=== PATIENT | female | born 1935 | race Caucasian/White ===

== ENCOUNTER 2016-12-23 17:13 | Inpatient (IN) | payer OTHER, BC ==
[~2016-12-23] VITALS: Ht 9 cm; Wt 85.5 kg
[2016-12-23] VITALS (19 sets, daily range): BP systolic 79–113; BP diastolic 48–88
--- NOTE | ~2016-12-23 | 2DMMODE ---
[facility] [address] [employer] [place] [address] 2 D/M-MODE ECHOCARDIOGRAM Name: TANNERROBBI J Room #: 243-P [facility] .R.#: [id number] Admission: 12/23/16 Attend Phys: Cristofer Nava Discharge: Date of : 39 Date of Service: 12/24/16 1049 Report #: [id number] THIS REPORT FOR: //name// APPROVED REPORT Study performed: 12/24/2016 08:15:51 EXAM: Comprehensive 2D, Doppler, and color-flow Echocardiogram Patient Location: Bedside Room #: 243 Status: routine Other Information Study Quality: Fair Indications Atrial Fibrillation Dyspnea acute respiratory failure 2D Dimensions RVDd: 33.81 mm LVEF(%): 66.26 (>50%) IVSd: 13.11 (7-11mm) LVOT Diam: 19.47 (18-24mm) LVDd: 44.28 mm PWd: 13.27 (7-11mm) Ascending Ao: 28.19 (22-36mm) LVDs: 28.18 (25-40mm) Aortic Root: 29.97 mm Christine's LVEF: 66.26 % Volumes Left Atrial Volume (Systole) Single Plane 4CH: 76.00 mL Single Plane 2CH: 79.35 mL LA ESV Index: 41.00 mL/m2 Aortic Valve AoV Peak Waldo.: 1.22 m/s AO Peak Gr.: 6.59 mmHg LVOT Max P.08 mmHg LVOT Max V: 0.72 m/s BINH Vmax: 1.74 cm2 Mitral Valve MV E Max Waldo.: 0.95 m/s IVRT: 96.89 ms Pulmonary Valve [facility] [address] [place] [address] 2 D/M-MODE ECHOCARDIOGRAM Name: ROBBI HART Walter Room #: 243-[facility]#: [id number] Admission: 12/23/16 Attend Phys: Cristofer Nava Discharge: Date of : 39 Date of Service: 12/24/16 1049 Report #: [id number] Peak Waldo.: 0.76 m/s PV Peak Gr.: 2.36 mmHg Tricuspid Valve TR Peak Waldo.: 2.75 m/s RAP Estimate: 10.00 mmHg TR Peak Gr.: 30.26 mmHg PA Pressure: 40.00 mmHg Left Ventricle The left ventricle is normal size. There is normal LV segmental wall motion. Mild concentric left ventricular hypertrophy. Left ventricular systolic function is borderline. LVEF is 50%. This study is not technically sufficient to allow evaluation of the LV diastolic function due to atrial fibrillation. Right Ventricle The right ventricle is normal size. The right ventricular systolic function is normal. Atria Left atrium is dilated. The right atrium size is normal. Aortic Valve Aortic valve leaflets are mildly thickened. Trace to mild aortic regurgitation. There is no aortic valvular stenosis. Mitral Valve The mitral valve is normal in structure. Trace mitral regurgitation. No evidence of mitral valve stenosis. Tricuspid Valve The tricuspid valve is normal in structure. There is mild tricuspid regurgitation. The right atrial pressure is estimated at 10 mmHg. There is mild pulmonary hypertension with an estimated PAP of 40 mmHg. Pulmonic Valve The pulmonary valve is normal in structure. Trace pulmonic regurgitation. Great Vessels The aortic root is normal in size. The ascending aorta is normal in size. IVC is dilated and collapses <50% with inspiration. Pericardium There is no pericardial effusion. [facility] [address] [place] [address] 2 D/M-MODE ECHOCARDIOGRAM Name: INDIA HARTCHANCE Watson Room #: 243-P [facility] IN ..#: [id number] Admission: 12/23/16 Attend Phys: Cristofer Nava Discharge: Date of : 39 Date of Service: 12/24/16 1049 Report #: [id number] <Conclusion> The left ventricle is normal size. LVEF is 50%. Left atrium is dilated. Aortic valve leaflets are mildly thickened. Trace to mild aortic regurgitation. There is no aortic valvular stenosis. The mitral valve is normal in structure. Trace mitral regurgitation. The tricuspid valve is normal in structure. There is mild tricuspid regurgitation. The right atrial pressure is estimated at 10 mmHg. There is mild pulmonary hypertension with an estimated PAP of 40 mmHg. The pulmonary valve is normal in structure. Trace pulmonic regurgitation. <ELECTRONICALLY SIGNED> By: Carlos Hoffman MD 12/24/16 1049 1049 1049 Carlos Hoffman MD /INF
--- NOTE | ~2016-12-23 | EKG ---
[address] [address] ELECTROCARDIOGRAM REPORT Name: INDIA HARTCHANCE Watson Room #: 243-P ADM IN M.R.#: [id number] Admission: 12/23/16 Attend Phys: Silvio Dela Cruz MD Discharge: Date of : 39 Report #: [id number] THIS REPORT FOR: //name// [facility] ED Test Date: 2016-12-23 Test Time: 17:30:16 Pat Name: ROBBI HART Department: Room: 243 Gender: F Fingerprint Classifier: [id number] : 1935 Requested By: Mikayla Fan Order Number: [id number] MD: Moses Medrano Measurements Intervals Raymond Rate: 96 P: 0 ID: 100 QRS: -25 QRSD: 87 T: 95 QT: 330 QTc: 417 Interpretive Statements Atrial fibrillation Borderline left axis deviation Borderline T wave abnormalities No previous ECG available for comparison Electronically Signed On 12-23-2016 23:05:12 CDT by Moses Medrano [email or web address] <ELECTRONICALLY SIGNED> By: Moses Medrano MD 12/23/16 2305 1730 1730 Moses Medrano MD /ROLAND
[2016-12-23 17:50] LABS: ABG SAMPLE TYPE ARTERIAL; BE(vivo) -5.4 mmol/L (-2 to +3); HCO3 17.9 mmol/L (22.0-26.0); LACTATE 2.66 mmol/L (0.5-2.0); O2Hb 89.4 % (92.0-98.0); PCO2 28.5 mmHg (35.0-45.0); PO2 60.1 mmHg (80.0-100.0); pH 7.416 (7.360-7.450); sO2 91.9 % (92.0-98.0); tCO2 18.8 mmol/L (24.0-30.0)
[2016-12-23 17:51] LABS: STICK SITE R.RADIAL
[2016-12-23 18:04] LABS: HEMATOCRIT 24.2 % (37.0-47.0); MCH 30.7 pg (26.0-34.0); MCV 93.1 fL (80.0-100.0); PLATELET COUNT 231 thou/uL (150-400); RDW 18.5 % (10.5-14.5); URINE BILIRUBIN NEGATIVE (Negative); URINE BLOOD 2+ (Negative); URINE COLOR YELLOW; URINE GLUCOSE-RANDOM* NEGATIVE (Negative); URINE KETONES NEGATIVE (Negative); URINE NITRITE NEGATIVE (Negative); URINE PROTEIN (DIPSTICK) 1+ (Negative); URINE UROBILINOGEN 0.2 E.U./dl (0.2-1.0); WBC 39.2 thou/uL (4.0-11.0)
[2016-12-23 18:07] LABS: MANUAL DIFF YES
[2016-12-23 18:14] LABS: ANION GAP 12 mmol/L (7-16); BUN 38 mg/dL (7-18); CALCIUM 7.3 mg/dL (8.5-10.1); CHLORIDE 103 mmol/L (98-107); CO2 19 mmol/L (21-32); CREATININE 1.8 mg/dL (0.6-1.0); GLUCOSE 98 mg/dL (74-106); POTASSIUM 3.9 mmol/L (3.5-5.1); SODIUM 134 mmol/L (136-145)
[2016-12-23 18:24] LABS: BACTERIA 1-9 Few /HPF (None Seen); CASTS None Seen /LPF (None Seen); CRYSTALS None Seen /LPF (None Seen); SQUAMOUS None Seen /LPF (0-3); URINE RBC 3-10 Few /HPF (0-2); YEAST Present (None Seen)
[2016-12-23 18:25] LABS: ALBUMIN 1.5 g/dL (3.4-5.0); NT-PRO BRAIN NAT PEPTIDE 4201 pg/mL (<300); SGOT 69 U/L (15-37); SGPT 45 U/L (30-65); TROPONIN-I < 0.04 ng/mL (<0.04-0.07)
[2016-12-23 18:38] LABS: ALKALINE PHOSPHATASE 390 U/L (46-116); TOTAL BILIRUBIN 0.5 mg/dL (<0.1-1.0); TOTAL PROTEIN 6.2 g/dL (6.4-8.2)
[2016-12-23 18:51] LABS: ABSOLUTE NEUTROPHILS 36.1 thou/uL (1.4-8.2); METAMYELOCYTES 3 %; PLATELET ESTIMATE NORMAL; TOTAL CELL COUNT 100
[2016-12-23 20:08] LABS: ABG SAMPLE TYPE VENOUS; BE(vivo) -7.6 mmol/L (-2 to +3); HCO3 17.4 mmol/L (22.0-26.0); LACTATE 2.03 mmol/L (0.5-2.0); O2(CT) 5.8 mL/dL (15.0-23.0); O2Hb VENOUS 48.8 (65.0-85.0); PCO2 VENOUS 33.1 mmHg (41.0-51.0); PO2 VENOUS 29.4 mmHg (35.0-45.0); sO2 VENOUS 52.8 % (65.0-85.0); tCO2 18.4 mmol/L (24.0-30.0)
[2016-12-23 20:09] LABS: STICK SITE PICC
[2016-12-23 21:02] LABS: APTT 47.7 Seconds (24.5-32.8); FIBRINOGEN 424.5 mg/dL (210-360); INR 1.3; PROTIME 13.4 Seconds (9.3-11.4)
[2016-12-23 21:05] LABS: AMYLASE 40 U/L (25-115)
[2016-12-23 21:08] LABS: ABG SAMPLE TYPE VENOUS; BE(vivo) -7.3 mmol/L (-2 to +3); HCO3 17.7 mmol/L (22.0-26.0); LACTATE 1.93 mmol/L (0.5-2.0); O2(CT) 6.3 mL/dL (15.0-23.0); PCO2 VENOUS 33.1 mmHg (41.0-51.0); PO2 VENOUS 31.5 mmHg (35.0-45.0); sO2 VENOUS 57.8 % (65.0-85.0); tCO2 18.7 mmol/L (24.0-30.0)
[2016-12-23 21:09] LABS: O2Hb VENOUS 53.4 (65.0-85.0); STICK SITE PICC
[2016-12-23 22:11] LABS: ABG SAMPLE TYPE VENOUS; BE(vivo) -7.2 mmol/L (-2 to +3); HCO3 17.6 mmol/L (22.0-26.0); LACTATE 1.82 mmol/L (0.5-2.0); O2(CT) 6.8 mL/dL (15.0-23.0); O2Hb VENOUS 55.7 (65.0-85.0); PCO2 VENOUS 32.4 mmHg (41.0-51.0); sO2 VENOUS 61.4 % (65.0-85.0); tCO2 18.6 mmol/L (24.0-30.0)
[2016-12-23 22:12] LABS: STICK SITE PICC
[2016-12-23 22:24] LABS: CALCIUM 7.1 mg/dL (8.5-10.1); CREATININE 1.7 mg/dL (0.6-1.0); POTASSIUM 3.7 mmol/L (3.5-5.1)
[2016-12-23 23:16] LABS: ABG SAMPLE TYPE VENOUS; BE(vivo) -8.7 mmol/L (-2 to +3); HCO3 16.5 mmol/L (22.0-26.0); LACTATE 1.76 mmol/L (0.5-2.0); O2(CT) 7.4 mL/dL (15.0-23.0); PCO2 VENOUS 32.9 mmHg (41.0-51.0); PO2 VENOUS 31.3 mmHg (35.0-45.0); sO2 VENOUS 55.8 % (65.0-85.0); tCO2 17.5 mmol/L (24.0-30.0)
[2016-12-23 23:17] LABS: ABG COMMENT VBG #4; O2Hb VENOUS 54.4 (65.0-85.0); STICK SITE LINE
[2016-12-24] VITALS (46 sets, daily range): BP systolic 85–150; BP diastolic 55–121
[2016-12-24 00:15] LABS: ABG SAMPLE TYPE VENOUS; BE(vivo) -8.4 mmol/L (-2 to +3); HCO3 17.1 mmol/L (22.0-26.0); LACTATE 1.76 mmol/L (0.5-2.0); O2(CT) 7.4 mL/dL (15.0-23.0); O2Hb VENOUS 54.5 (65.0-85.0); PO2 VENOUS 31.5 mmHg (35.0-45.0); STICK SITE LINE; sO2 VENOUS 55.2 % (65.0-85.0); tCO2 18.1 mmol/L (24.0-30.0)
[2016-12-24 00:16] LABS: ABG COMMENT VBG #5
[2016-12-24] MEDS ORDERED: ENOXAPARIN30 MG/0.1 SUBQ (00:44)
[2016-12-24] MEDS ORDERED: VOLTAREN GEL 1100 G2 TOP (00:44)
[2016-12-24] MEDS ORDERED: SMOFLIPID 20%100 ML IV (00:46)
[2016-12-24] MEDS ORDERED: REGLAN 10 MG TA10 MG IV PUSH ×2 (00:47→00:48)
[2016-12-24] MEDS ORDERED: CLINIMIX 5%-12000 ML IV (00:50)
[2016-12-24 01:02] LABS: ABG SAMPLE TYPE VENOUS; BE(vivo) -8.4 mmol/L (-2 to +3); HCO3 17.3 mmol/L (22.0-26.0); O2(CT) 8.3 mL/dL (15.0-23.0); O2Hb VENOUS 59.9 (65.0-85.0); PCO2 VENOUS 35.9 mmHg (41.0-51.0); PO2 VENOUS 33.5 mmHg (35.0-45.0); sO2 VENOUS 58.8 % (65.0-85.0); tCO2 18.4 mmol/L (24.0-30.0)
[2016-12-24 01:03] LABS: ABG COMMENT VBG #6; STICK SITE LINE
[2016-12-24 03:51] LABS: POTASSIUM 3.5 mmol/L (3.5-5.1)
[2016-12-24 03:53] LABS: HEMATOCRIT 26.6 % (37.0-47.0); HEMOGLOBIN 8.8 gm/dL (12.0-15.0); MCH 30.5 pg (26.0-34.0); MCHC 33.2 g/dL (28.0-37.0); PLATELET COUNT 182 thou/uL (150-400); RDW 17.9 % (10.5-14.5); WBC 39.5 thou/uL (4.0-11.0)
[2016-12-24 03:54] LABS: MANUAL DIFF YES
[2016-12-24 03:55] LABS: CREATININE 1.7 mg/dL (0.6-1.0)
[2016-12-24 04:25] LABS: ABSOLUTE NEUTROPHILS 37.1 thou/uL (1.4-8.2); PLATELET ESTIMATE NORMAL; TOTAL CELL COUNT 100
[2016-12-24 05:03] LABS: ABG SAMPLE TYPE ARTERIAL; BE(vivo) -8.3 mmol/L (-2 to +3); HCO3 15.1 mmol/L (22.0-26.0); LACTATE 2.33 mmol/L (0.5-2.0); O2(CT) 16.9 mL/dL (15.0-23.0); O2Hb 95.2 % (92.0-98.0); PCO2 25.5 mmHg (35.0-45.0); PO2 83.8 mmHg (80.0-100.0); pH 7.389 (7.360-7.450); sO2 96.4 % (92.0-98.0); tCO2 15.8 mmol/L (24.0-30.0)
[2016-12-24 05:04] LABS: STICK SITE R.RADIAL
[2016-12-24 08:02] LABS: ALKALINE PHOSPHATASE 329 U/L (46-116); SGOT 65 U/L (15-37); TOTAL BILIRUBIN 0.3 mg/dL (<0.1-1.0)
[2016-12-24 08:03] LABS: ALBUMIN 1.5 g/dL (3.4-5.0); SGPT 44 U/L (30-65)
[2016-12-25] VITALS (27 sets, daily range): BP systolic 71–172; BP diastolic 27–133
[2016-12-25 04:58] LABS: HEMATOCRIT 27.7 % (37.0-47.0); HEMOGLOBIN 9.1 gm/dL (12.0-15.0); MCH 30.3 pg (26.0-34.0); MCHC 32.8 g/dL (28.0-37.0); MCV 92.5 fL (80.0-100.0); PLATELET COUNT 179 thou/uL (150-400); RBC 2.99 mil/uL (4.20-5.00); WBC 27.2 thou/uL (4.0-11.0)
[2016-12-25 05:02] LABS: MANUAL DIFF YES
[2016-12-25 05:14] LABS: ALBUMIN 1.7 g/dL (3.4-5.0); CALCIUM 7.1 mg/dL (8.5-10.1); CREATININE 1.6 mg/dL (0.6-1.0); POTASSIUM 3.6 mmol/L (3.5-5.1); TOTAL BILIRUBIN 0.3 mg/dL (<0.1-1.0); TOTAL PROTEIN 6.4 g/dL (6.4-8.2)
[2016-12-25 05:22] LABS: ABSOLUTE NEUTROPHILS 24.2 thou/uL (1.4-8.2); PLATELET ESTIMATE NORMAL; TOTAL CELL COUNT 100
[2016-12-26] VITALS (44 sets, daily range): BP systolic 128–173; BP diastolic 59–152
[2016-12-26 04:41] LABS: ABG SAMPLE TYPE ARTERIAL; BE(vivo) -9.1 mmol/L (-2 to +3); HCO3 15.2 mmol/L (22.0-26.0); LACTATE 1.33 mmol/L (0.5-2.0); O2(CT) 12.9 mL/dL (15.0-23.0); O2Hb 90.5 % (92.0-98.0); PCO2 27.6 mmHg (35.0-45.0); PO2 66.5 mmHg (80.0-100.0); STICK SITE R.BRACHIAL; pH 7.358 (7.360-7.450); sO2 92.9 % (92.0-98.0)
[2016-12-26 04:49] LABS: HEMATOCRIT 27.3 % (37.0-47.0); HEMOGLOBIN 9.1 gm/dL (12.0-15.0); MCH 30.5 pg (26.0-34.0); MCHC 33.4 g/dL (28.0-37.0); MCV 91.3 fL (80.0-100.0); PLATELET COUNT 181 thou/uL (150-400); RBC 2.99 mil/uL (4.20-5.00); RDW 17.5 % (10.5-14.5)
[2016-12-26 04:50] LABS: MANUAL DIFF YES
[2016-12-26 04:55] LABS: CALCIUM 7.3 mg/dL (8.5-10.1); CREATININE 1.4 mg/dL (0.6-1.0); POTASSIUM 3.4 mmol/L (3.5-5.1)
[2016-12-26 05:07] LABS: ABSOLUTE NEUTROPHILS 15.3 thou/uL (1.4-8.2); ANISOCYTOSIS 1+; PLATELET ESTIMATE NORMAL; TOTAL CELL COUNT 100
[2016-12-26 14:05] LABS: ABG SAMPLE TYPE ARTERIAL; BE(vivo) -10.7 mmol/L (-2 to +3); LACTATE 0.98 mmol/L (0.5-2.0); O2(CT) 16.3 mL/dL (15.0-23.0); O2Hb 98.3 % (92.0-98.0); PCO2 32.9 mmHg (35.0-45.0); PO2 224.1 mmHg (80.0-100.0); sO2 99.4 % (92.0-98.0); tCO2 16.1 mmol/L (24.0-30.0)
[2016-12-26 14:07] LABS: STICK SITE R.RADIAL; TIDAL VOLUME 600 ml; pH 7.278 (7.360-7.450)
[2016-12-26 19:08] LABS: ABG SAMPLE TYPE ARTERIAL; FIO2 30 %; HCO3 15.2 mmol/L (22.0-26.0); LACTATE 1.28 mmol/L (0.5-2.0); O2(CT) 14.9 mL/dL (15.0-23.0); O2Hb 96.4 % (92.0-98.0); PCO2 27.9 mmHg (35.0-45.0); PO2 104.5 mmHg (80.0-100.0); TIDAL VOLUME 500 ml; pH 7.354 (7.360-7.450); sO2 97.7 % (92.0-98.0); tCO2 16.1 mmol/L (24.0-30.0)
[2016-12-26 19:09] LABS: STICK SITE L.RADIAL
[2016-12-27] VITALS (24 sets, daily range): BP systolic 116–174; BP diastolic 55–117
[2016-12-27 05:22] LABS: ABG SAMPLE TYPE ARTERIAL; HCO3 15.5 mmol/L (22.0-26.0); LACTATE 1.37 mmol/L (0.5-2.0); O2(CT) 13.9 mL/dL (15.0-23.0); O2Hb 95.4 % (92.0-98.0); PO2 85.4 mmHg (80.0-100.0); sO2 97.1 % (92.0-98.0); tCO2 16.2 mmol/L (24.0-30.0)
[2016-12-27 05:23] LABS: PCO2 22.8 mmHg (35.0-45.0)
[2016-12-27 05:24] LABS: FIO2 30 %; STICK SITE R.RADIAL
[2016-12-27 05:25] LABS: TIDAL VOLUME 500 ml
[2016-12-27 05:56] LABS: HEMATOCRIT 27.8 % (37.0-47.0); HEMOGLOBIN 9.4 gm/dL (12.0-15.0); MCH 30.7 pg (26.0-34.0); MCHC 33.7 g/dL (28.0-37.0); RBC 3.06 mil/uL (4.20-5.00); RDW 17.4 % (10.5-14.5); WBC 15.3 thou/uL (4.0-11.0)
[2016-12-27 06:20] LABS: CALCIUM 7.3 mg/dL (8.5-10.1); CREATININE 1.5 mg/dL (0.6-1.0); POTASSIUM 3.3 mmol/L (3.5-5.1)
[2016-12-27 09:12] LABS: MAGNESIUM 1.3 mg/dL (1.8-2.4)
[2016-12-27 11:06] LABS: ABG SAMPLE TYPE ARTERIAL; BE(vivo) -6.1 mmol/L (-2 to +3); LACTATE 2.12 mmol/L (0.5-2.0); O2(CT) 15.5 mL/dL (15.0-23.0); O2Hb 96.5 % (92.0-98.0); PCO2 26.6 mmHg (35.0-45.0); PO2 94.7 mmHg (80.0-100.0); Pressure Support 8 cm H20; STICK SITE R.RADIAL; pH 7.424 (7.360-7.450); sO2 97.5 % (92.0-98.0); tCO2 17.8 mmol/L (24.0-30.0)
[2016-12-27 15:39] LABS: MAGNESIUM 2.2 mg/dL (1.8-2.4); POTASSIUM 3.5 mmol/L (3.5-5.1)
[2016-12-28] VITALS (23 sets, daily range): BP systolic 120–150; BP diastolic 49–106
[2016-12-28 05:58] LABS: CALCIUM 7.5 mg/dL (8.5-10.1); CREATININE 1.4 mg/dL (0.6-1.0); MAGNESIUM 1.7 mg/dL (1.8-2.4); POTASSIUM 3.5 mmol/L (3.5-5.1)
[2016-12-28 08:32] LABS: ABG SAMPLE TYPE ARTERIAL; BE(vivo) -6.5 mmol/L (-2 to +3); HCO3 17.2 mmol/L (22.0-26.0); LACTATE 1.17 mmol/L (0.5-2.0); O2(CT) 14.3 mL/dL (15.0-23.0); O2Hb 94.5 % (92.0-98.0); PCO2 28.6 mmHg (35.0-45.0); PO2 82.9 mmHg (80.0-100.0); STICK SITE R.RADIAL; pH 7.398 (7.360-7.450); sO2 96.3 % (92.0-98.0); tCO2 18.1 mmol/L (24.0-30.0)
[2016-12-28 13:50] LABS: MAGNESIUM 2.4 mg/dL (1.8-2.4); POTASSIUM 3.8 mmol/L (3.5-5.1)
[2016-12-29] VITALS (23 sets, daily range): BP systolic 128–157; BP diastolic 57–85
[2016-12-29 05:22] LABS: CALCIUM 7.4 mg/dL (8.5-10.1); CREATININE 1.3 mg/dL (0.6-1.0); MAGNESIUM 1.9 mg/dL (1.8-2.4); POTASSIUM 3.4 mmol/L (3.5-5.1)
[2016-12-30 07:06] LABS: HEMATOCRIT 30.1 % (37.0-47.0); HEMOGLOBIN 10.3 gm/dL (12.0-15.0); MCH 30.7 pg (26.0-34.0); MCHC 34.1 g/dL (28.0-37.0); MCV 89.9 fL (80.0-100.0); RBC 3.35 mil/uL (4.20-5.00); RDW 17.2 % (10.5-14.5); WBC 10.8 thou/uL (4.0-11.0)
[2016-12-30 07:57] LABS: CALCIUM 7.6 mg/dL (8.5-10.1); CREATININE 1.3 mg/dL (0.6-1.0); POTASSIUM 3.5 mmol/L (3.5-5.1)
[2016-12-30 09:47] VITALS: BP 147/71
[2016-12-30 12:11] VITALS: BP 138/72
[2016-12-30] MEDS ORDERED: PACERONE 200 M200 M1 PO (13:26)
[2016-12-30] MEDS ORDERED: HYDROCODON-ACE1 EAC7 PO (13:27)
[2016-12-30] MEDS ORDERED: MEROPENEM500 MG IV (13:35)
[2016-12-30 16:17] VITALS: BP 142/72
== END 2016-12-30 20:17 | DRG 871 ==
LOC: ER 17:13 → ICU 18:37 → EROBS 18:37 → ICU 19:44 → 2N 12-29 20:59
PROVIDERS: Internal Medicine Geriatric Medicine; Internal Medicine Pulmonary Disease; Physician Assistant; Specialist
PROC: 30233N1 Transfusion of Nonautologous Red Blood Cells into Peripheral Vein, Percutaneous Approach (ICD-10-PCS; 2016-12-23)
PROC: 02HV33Z Insertion of Infusion Device into Superior Vena Cava, Percutaneous Approach (ICD-10-PCS; 2016-12-24)
PROC: B548ZZA Ultrasonography of Superior Vena Cava, Guidance (ICD-10-PCS; 2016-12-24)
PROC: BT1D1ZZ Fluoroscopy of Right Kidney, Ureter and Bladder using Low Osmolar Contrast (ICD-10-PCS; principal; 2016-12-26)
PROC: 0T768DZ Dilation of Right Ureter with Intraluminal Device, Via Natural or Artificial Opening Endoscopic (ICD-10-PCS; principal; 2016-12-26)
PROC: 5A1935Z Respiratory Ventilation, Less than 24 Consecutive Hours (ICD-10-PCS; 2016-12-26)
DX: A41.9 Sepsis, unspecified organism (principal); J18.9 Pneumonia, unspecified organism; R65.21 Severe sepsis with septic shock; J96.01 Acute respiratory failure with hypoxia; K68.12 Psoas muscle abscess; N13.2 Hydronephrosis with renal and ureteral calculous obstruction; N17.9 Acute kidney failure, unspecified; N39.0 Urinary tract infection, site not specified; E46 Unspecified protein-calorie malnutrition; M46.42 Discitis, unspecified, cervical region; I48.0 Paroxysmal atrial fibrillation; G89.29 Other chronic pain; D64.9 Anemia, unspecified; E78.5 Hyperlipidemia, unspecified; I25.10 Atherosclerotic heart disease of native coronary artery without angina pectoris; B96.1 Klebsiella pneumoniae [K. pneumoniae] as the cause of diseases classified elsewhere; I12.9 Hypertensive chronic kidney disease with stage 1 through stage 4 chronic kidney disease, or unspecified chronic kidney disease; N18.9 Chronic kidney disease, unspecified; L89.90 Pressure ulcer of unspecified site, unspecified stage; Z96.653 Presence of artificial knee joint, bilateral; M46.46 Discitis, unspecified, lumbar region; B96.89 Other specified bacterial agents as the cause of diseases classified elsewhere; I25.5 Ischemic cardiomyopathy; E87.6 Hypokalemia; Z79.899 Other long term (current) drug therapy; Z88.1 Allergy status to other antibiotic agents; Z86.718 Personal history of other venous thrombosis and embolism; Z90.710 Acquired absence of both cervix and uterus; Z90.49 Acquired absence of other specified parts of digestive tract; Z82.49 Family history of ischemic heart disease and other diseases of the circulatory system
CPT/HCPCS: 10078; 10081; 50101; 50214; 50455; 51620; 56674; 56815; 62110; 62900

== ENCOUNTER 2017-01-19 05:55 | Day surgery (SDC) | payer OTHER, BC ==
[~2017-01-19] VITALS: Ht 152.4 cm; Wt 86.2 kg
--- NOTE | ~2017-01-19 | O ---
[facility] [place] [address] OPERATIVE REPORT Name: ROBBI HART Room #: [facility] M..#: [id number] Admission: 01/19/17 Attend Phys: Silvio Shipley MD Discharge: 01/19/17 Date of : 39 Report #: [id number] THIS REPORT FOR: //name// CC: Don Shipley [facility] unknown DATE OF SERVICE: 01/19/2017 PREOPERATIVE DIAGNOSES: Right mid ureteral calculi, right renal calculi. POSTOPERATIVE DIAGNOSES: Right mid ureteral calculi, right renal calculi. PROCEDURE: Cystoscopy, right retrograde pyelogram, right ureteral pyeloscopy with holmium laser ablation of right ureteral and renal calculi with placement of indwelling ureteral stent. SURGEON: Silvio Shipley M.D. ANESTHESIA: General. INDICATIONS: The patient is a 81-year-old woman who was recently hospitalized with sepsis due to an obstructing ureteral stone. She was stented and she has been treated appropriately. She is afebrile and was brought back for definitive management. Risks, benefits, complications including bleeding, sepsis and injury to the kidneys and ureters were discussed. She and her daughter who is power of warehouse clerk understand that complications could occur, which may not have been foreseen or discussed. Issues related to stent placement and stent removal were discussed. DESCRIPTION OF PROCEDURE: After obtaining informed consent, she was brought to the operating room, general anesthetic was administered. The Rodriguez catheter was removed and she was prepped and draped in lithotomy position by the operating personnel under anesthesia supervision. Preliminary fluoroscopic images did not show any obvious stones overlying the kidney or renal shadow or alongside the ureter, but these were known to be there from the CT scan and there was gas overlying as well. The 21-Maltese ACMI cystoscope was introduced. The bladder was smooth walled. No intrinsic mucosal lesions. A 0.35 Glidewire was placed alongside the ureter alongside the stent into the right renal pelvis. The stent was grasped and removed. The ureter appeared to be dilated; therefore, I introduced a 6.9 Maltese semirigid ureteroscope into the ureter at the mid ureter overlying the mid SI area. A stone was identified, partially impacted. I used a 272 micron holmium laser fiber to break the stone into innumerable fragments. There was a small stone just cephalad to this and I broke this one up as well. I retrieved all the fragments with a 1.9 Maltese 0 tip nitinol basket. I [facility] [address] [place] [address] OPERATIVE REPORT Name: ROBBI HART Room #: DEP [facility] M..#: [id number] Admission: 01/19/17 Attend Phys: iSlvio Shipley MD Discharge: 01/19/17 Date of : 39 Report #: [id number] introduced the ureteroscope up to the UPJ. I then placed a second wire and injected some contrast to outline the renal pelvis. The collecting system was decompressed. I placed the digital ureteroscope over one of the wires into the right kidney, I removed the wire leaving the second wire as a safety wire. I found 1 small stone, which I retrieved with the nitinol basket and there were no other significant stone fragments. There were 2 very small fragments, which were too small to engage. At this point, she was essentially rendered stone free. I removed the ureteroscope and backloaded the wire through the cystoscope and placed a 6-Maltese x 22 cm contour stent. Position was confirmed fluoroscopically with hard copy with proximal curl overlying the right renal shadow, distal curl was overlying the bladder. I drained the bladder and placed a 16-Maltese Rodriguez catheter. She was transferred to the recovery room where she arrived in stable condition. The findings were shared with her family. <ELECTRONICALLY SIGNED> By: Silvio Shipley MD 01/23/17 0704 1455 1535 Silvio Shipley MD /nt
[~2017-01-19 05:55] MED LIST: BENADRYL25 MG PO; CLINIMIX 5%-12000 ML IV; DIGOXIN125 MCG PO; ENOXAPARIN30 MG/0.1 SUBQ; FENTANYL PA25 MCG/HR TRANSDERM; HYDROCODON-ACE1 EAC7 PO; IRON325 PO; LEVOTHYROXIN0.125 M1 PO; MAALOX PO; MEROPENEM500 MG IV; MILK OF MA400 MG/5 M PO; NITROGLYCERIN0.4 MG SUBLING; NYSTATIN 1100000 U/M SW&SWALLOW; OXYCONTIN10 M1 PO; PACERONE 200 M200 M1 PO; PERIACTIN PO; REGLAN 10 MG TA10 MG IV PUSH; SMOFLIPID 20%100 ML IV; TYLENOL325 MG PO; VOLTAREN GEL 1100 G2 TOP; XARELTO20 MG PO
[2017-01-19 13:37] LABS: URINE BILIRUBIN NEGATIVE (Negative); URINE BLOOD 3+ (Negative); URINE COLOR YELLOW; URINE GLUCOSE-RANDOM* NEGATIVE (Negative); URINE KETONES NEGATIVE (Negative); URINE NITRITE POSITIVE (Negative); URINE PROTEIN (DIPSTICK) 3+ (Negative); URINE SPECIFIC GRAVITY 1.025 (1.003-1.035); URINE UROBILINOGEN 0.2 E.U./dl (0.2-1.0)
[2017-01-19 13:55] LABS: SQUAMOUS 0-3 Few /LPF (0-3); URINE RBC 3-10 Few /HPF (0-2); URINE WBC >25 Many /HPF (0-5)
[2017-01-19 13:57] LABS: BACTERIA >30 Many /HPF (None Seen); CASTS None Seen /LPF (None Seen); CRYSTALS None Seen /LPF (None Seen)
== END 2017-01-19 15:55 | disposition home or self-care (01) ==
LOC: OR 05:55 → TBA 05:56 → OR 11:36
PROVIDERS: Family Medicine; Specialist
DX: N20.2 Calculus of kidney with calculus of ureter (principal); I48.91 Unspecified atrial fibrillation; F41.8 Other specified anxiety disorders; F32.89 Other specified depressive episodes; G47.33 Obstructive sleep apnea (adult) (pediatric); Z90.49 Acquired absence of other specified parts of digestive tract; Z90.710 Acquired absence of both cervix and uterus; Z98.890 Other specified postprocedural states; Z88.8 Allergy status to other drugs, medicaments and biological substances
CPT/HCPCS: 50010; 50101; 50164; 50214; 51620; 56815; 62110; 62900; 70005

== ENCOUNTER 2017-02-02 05:53 | Day surgery (SDC) | payer OTHER, BC ==
[~2017-02-02] VITALS: Ht 144.8 cm; Wt 72.6 kg
--- NOTE | ~2017-02-02 | O ---
[facility] [address] OPERATIVE REPORT Name: ROBBI HART Room #: [facility] M..#: [id number] Admission: 02/02/17 Attend Phys: Silvio Shipley MD Discharge: 02/02/17 Date of : 39 Report #: [id number] THIS REPORT FOR: //name// CC: Don Shipley [facility] physician/PCP PREOPERATIVE DIAGNOSIS: Right ureteral calculus. POSTOPERATIVE DIAGNOSIS: Right ureteral calculus. PROCEDURES: Cystoscopy, right ureteral stent removal, right retrograde pyelogram. SURGEON: Silvio Shipley M.D. ANESTHESIA: General. INDICATIONS: The patient is a delightful 81-year-old woman who recently presented with sepsis due to a ureteral calculus. The infection was treated. She subsequently underwent ureteroscopy and laser ablation and is now back for stent removal. Risks, benefits, complications including recurrent stones and sepsis have been discussed. She and the family understand complications could occur, which may not have been foreseen or discussed. Risk of deep venous thrombosis, pulmonary embolism, heart attack, stroke and have been discussed. They understand all complications may not be predictable. DESCRIPTION OF PROCEDURE: After obtaining informed consent, she was brought to the operating room, general anesthetic was administered. She was prepped and draped in lithotomy position by the operating personnel under anesthesia supervision. Preliminary fluoroscopic images showed the stent to be in proper anatomical position. A 21-Macanese ACMI cystoscope was introduced after a timeout, and IV antibiotics were administered. The stent was identified, grasped and removed. I placed an open-ended ureteral catheter into the ureter. Contrast was injected. The right upper tract was pristine with excellent drainage. There were no filling defects, and there was a normal-appearing system. Excellent drainage occurred. Post-drainage films were obtained, and the bladder was drained. I replaced the catheter with a 16-Macanese Rodriguez. Of note, I did send urine for culture. By: 1346 1815 Silvio Shipley MD /nt
[~2017-02-02 05:53] MED LIST changes: +BISACODYL SUPP10 MG RECTAL; +FLEET ENEMA118 ML RC; +NYAMYC15 GM TOP
[2017-02-02 12:30] VITALS: BP 114/51
[2017-02-02 12:31] LABS: CALCIUM 8.3 mg/dL (8.5-10.1); CREATININE 1.5 mg/dL (0.6-1.0); POTASSIUM 3.4 mmol/L (3.5-5.1)
== END 2017-02-02 16:00 ==
LOC: MRI → OR 05:53 → TBA 05:53 → OR 12:11
PROVIDERS: Student in an Organized Health Care Education/Training Program
DX: N20.1 Calculus of ureter (principal); I10 Essential (primary) hypertension; I48.91 Unspecified atrial fibrillation; E78.5 Hyperlipidemia, unspecified; E03.9 Hypothyroidism, unspecified; M19.90 Unspecified osteoarthritis, unspecified site; G89.29 Other chronic pain; G47.33 Obstructive sleep apnea (adult) (pediatric); F41.8 Other specified anxiety disorders; F32.89 Other specified depressive episodes; K21.9 Gastro-esophageal reflux disease without esophagitis; Z88.8 Allergy status to other drugs, medicaments and biological substances; Z90.710 Acquired absence of both cervix and uterus; Z98.890 Other specified postprocedural states; Z90.49 Acquired absence of other specified parts of digestive tract; Z96.653 Presence of artificial knee joint, bilateral; Z79.899 Other long term (current) drug therapy; Z87.442 Personal history of urinary calculi
CPT/HCPCS: 50010; 50101; 56674; 56815; 62110; 62900; 70005